=== PATIENT | male | born 1950 | race Caucasian/White ===

== ENCOUNTER 2018-10-11 11:00 | Outpatient (RCR) | payer BC ==
[~2018-10-11 11:00] MED LIST: NEXIUM 40MG40 MG PO; NO HOME MEDICATIONS; VITAMIN C500 MG PO
== END 2018-12-26 | disposition home or self-care (01) ==
LOC: WSPT
DX: M25.511 Pain in right shoulder (principal)

== ENCOUNTER → 2019-01-31 | Outpatient (CLI) | payer MEDICARE, OTHER | LOC: COL.RAD 13:14 | DX: N50.812 Left testicular pain (principal) ==